=== PATIENT | male | born 1985 | race Caucasian/White ===

== ENCOUNTER 2021-06-04 11:42 | Emergency (ER) | payer OTHER ==
[2021-06-04 12:13] VITALS: BP 107/72; PULSE 73; RESP 20; TEMP 98.3
--- NOTE | 2021-06-04 12:31 | ED ---
ENT HPI - General Source: patient, RN notes reviewed Mode of arrival: ambulatory Limitations: no limitations <Shankar Castellanos - Last Filed: 06/04/21 12:30> <Nichelle Spivey - Last Filed: 06/04/21 13:42> - General Chief complaint: ENT Stated complaint: sore throat Time Seen by Provider: 06/04/21 12:20 - History of Present Illness Initial comments: This a 36-year-old male presents emergency Department chief complaint of nasal congestion, cough, sore throat. Patient states been sick last couple days. Denies any significant shortness breath, chest pain. No sick contacts no ear pain no complaints of severe headache or neck stiffness. Patient has meant that he is a daily smoker. Patient has NO KNOWN DRUG ALLERGIES. (Shankar Castellanos) - Related Data Home Medications Medication Instructions Recorded Confirmed No Known Home Medications 11/16/15 11/18/15 Allergies Allergy/AdvReac Type Severity Reaction Status Date / Time No Known Allergies Allergy Verified 06/04/21 12:13 Review of Systems ROS Other: All systems not noted in ROS Statement are negative. <Shankar Castellanos - Last Filed: 06/04/21 12:30> ROS Other: All systems not noted in ROS Statement are negative. <Nichelle Spivey - Last Filed: 06/04/21 13:42> ROS Statement: Those systems with pertinent positive or pertinent negative responses have been documented in the HPI. Past Medical History Past Medical History: No Reported History History of Any Multi-Drug Resistant Organisms: None Reported Past Surgical History: No Surgical Hx Reported Past Psychological History: No Psychological Hx Reported Smoking Status: Current every day smoker Past Alcohol Use History: None Reported Past Drug Use History: None Reported <Shankar Castellanos - Last Filed: 06/04/21 12:30> General Exam Limitations: no limitations <Shankar Castellanos - Last Filed: 06/04/21 12:30> <Nichelle Spivey - Last Filed: 06/04/21 13:42> - General Exam Comments Initial Comments: GENERAL: Patient is well-developed and well-nourished. Patient is nontoxic and in no acute distress. HEAD: Atraumatic, normocephalic. EYES: Pupils equal round and reactive to light, extraocular movements intact, sclera anicteric, conjunctiva are normal. Eyelids were unremarkable. ENT: TMs normal, nares patent, oropharynx clear without exudates. Moist mucous membranes. NECK: Normal range of motion, supple without lymphadenopathy or JVD. LUNGS: Unlabored respirations. Breath sounds clear to auscultation bilaterally and equal. No wheezes rales or rhonchi. HEART: Regular rate and rhythm without murmurs, rubs or gallops. ABDOMEN: Soft, nontender, normoactive bowel sounds. No guarding, no rebound. No masses appreciated. : Deferred MUSCULOSKELETAL: Normal extremities with adequate strength and normal range of motion, no pitting or edema. No clubbing or cyanosis. NEUROLOGICAL: Patient is alert and oriented x 3. SKIN: Warm, Dry, normal turgor, no rashes or lesions noted. (Nichelle Spivey) Course Vital Signs 06/04/21 12:10 Temperature 98.3 F Pulse Rate 73 Respiratory 20 Rate Blood Pressure 107/72 O2 Sat by Pulse 96 Oximetry Medical Decision Making <Nichelle Spivey - Last Filed: 06/04/21 13:42> - Medical Decision Making Patient is a 36-year-old male here with complaints of a sore throat, cough for the past 2 days. No chest pain, no shortness of breath, no fevers. He did have a sick contact a few days ago. Vital signs are stable. Exam reveals no acute findings. His chest x-ray is normal, it is negative. I discussed with patient that this is most likely viral nature recommended Tylenol or ibuprofen for his discomfort. He can follow-up with his family doctor. Return parameters were discussed with him and he verbalized understanding. (Nichelle Spivey) - Lab Data Lab Results 06/04/21 Range/Units 12:23 Coronavirus (PCR) Not Detected (Not Detectd) Disposition <Shankar Castellanos - Last Filed: 06/04/21 12:30> Is patient prescribed a controlled substance at d/c from ED?: No Time of Disposition: 13:42 <Nichelle Spivey - Last Filed: 06/04/21 13:42> Clinical Impression: Viral illness Disposition: HOME SELF-CARE Condition: Stable Instructions (If sedation given, give patient instructions): Viral Syndrome (ED) Additional Instructions: Please return to the Emergency Department if symptoms worsen or any other concerns. Recommend Tylenol or ibuprofen for any discomfort, increase your fluid intake. Follow-up with your primary care doctor if symptoms persist. Referrals: None,Stated [Primary Care Provider] - 1-2 days
--- NOTE | 2021-06-04 13:33 | XR ---
EXAMINATION TYPE: XR chest 2V DATE OF EXAM: 06/04/2021 COMPARISON: NONE TECHNIQUE: PA and lateral views submitted. HISTORY: Cough and sore throat FINDINGS: The lungs are clear and there is no pneumothorax, pleural effusion, or focal pneumonia. Perihilar i nterstitial prominence. IMPRESSION: 1. Correlate for bronchitis or mild interstitial pneumonitis..
== END 2021-06-04 14:02 | disposition home or self-care (01) ==
LOC: EC 11:42
DX: B34.9 Viral infection, unspecified (principal); F17.200 Nicotine dependence, unspecified, uncomplicated; Z20.822 Contact with and (suspected) exposure to COVID-19
CPT/HCPCS: 71046; 87635; 99283

== ENCOUNTER 2021-07-18 12:57 | Emergency (ER) | payer OTHER ==
--- NOTE | 2021-07-18 14:19 | ED ---
URI HPI - General Chief Complaint: Upper Respiratory Infection Stated Complaint: covid exposure Time Seen by Provider: 07/18/21 13:25 Source: patient, RN notes reviewed Mode of arrival: ambulatory Limitations: no limitations - History of Present Illness Initial Comments: Patient is a 36-year-old male that presents to the emergency department complaining of cough and upper respiratory tract symptoms for the past several days. He notes that he's been in contact with a positive coworker. He notes that he can emergency room to get tested. He denied any other issues or complaints. He does note that he smokes. He denied chest pain shortness breath headache nausea vomiting diarrhea constipation fever fatigue chills. - Related Data Home Medications Medication Instructions Recorded Confirmed No Known Home Medications 11/16/15 11/18/15 Allergies Allergy/AdvReac Type Severity Reaction Status Date / Time No Known Allergies Allergy Verified 07/18/21 13:18 Review of Systems ROS Statement: Those systems with pertinent positive or pertinent negative responses have been documented in the HPI. ROS Other: All systems not noted in ROS Statement are negative. Past Medical History Past Medical History: No Reported History History of Any Multi-Drug Resistant Organisms: None Reported Past Surgical History: No Surgical Hx Reported Past Psychological History: No Psychological Hx Reported Smoking Status: Current every day smoker Past Alcohol Use History: Rare Past Drug Use History: None Reported General Exam Limitations: no limitations General appearance: alert, in no apparent distress Head exam: Present: atraumatic, normocephalic, normal inspection Eye exam: Present: normal appearance, PERRL, EOMI. Absent: scleral icterus, conjunctival injection, periorbital swelling ENT exam: Present: normal exam, mucous membranes moist Neck exam: Present: normal inspection Respiratory exam: Present: normal lung sounds bilaterally. Absent: respiratory distress, wheezes, rales, rhonchi, stridor Cardiovascular Exam: Present: regular rate, normal rhythm, normal heart sounds. Absent: systolic murmur, diastolic murmur, rubs, gallop, clicks Extremities exam: Present: normal inspection, full ROM, normal capillary refill. Absent: tenderness, pedal edema, joint swelling, calf tenderness Neurological exam: Present: alert, oriented X3 Psychiatric exam: Present: normal affect, normal mood Skin exam: Present: warm, dry, intact, normal color. Absent: rash Course Vital Signs 07/18/21 07/18/21 13:16 13:26 Temperature 98.6 F Pulse Rate 78 Respiratory 18 20 Rate Blood Pressure 124/86 O2 Sat by Pulse 98 Oximetry Medical Decision Making - Medical Decision Making 36-year-old male complaining of upper respiratory tract symptoms, contact with Covid-positive coworker. Covid test ordered. Covid test positive. Patient does meet criteria for monoclonal antibody and wishes to undergo IV infusion. Case discussed with Dr. [place]edo, patient discharge home after IV infusion. - Lab Data Lab Results 07/18/21 Range/Units 13:20 Coronavirus (PCR) Detected A (Not Detectd) Disposition Clinical Impression: COVID Disposition: HOME SELF-CARE Condition: Stable Instructions (If sedation given, give patient instructions): Coronavirus Disease 2019 (COVID-19) Additional Instructions: Please return to the Emergency Department if symptoms worsen or any other concerns. Follow-up with primary care 1-2 days. Take Tylenol and Motrin alternating every 3 hours as needed for any fevers. Can use [id number] cough medicine. Quarantine per CDC guidelines. Is patient prescribed a controlled substance at d/c from ED?: No Referrals: None,Stated [Primary Care Provider] - 1-2 days Time of Disposition: 14:18
[2021-07-18] MEDS ORDERED: CASIRIVIMAB (REGN10933) (EUA) 600 MG, IMDEVIMAB (REGN10987) (EUA) 600 MG in SODIUM CHLO... IVPB ONE (14:30)
[2021-07-18] MEDS ORDERED: SODIUM CHLORIDE 0.9% 50 ML IVPB ONE (14:30)
[2021-07-18 14:49] VITALS: RESP 18
[2021-07-18 16:19] VITALS: BP 121/76; PULSE 59; TEMP 98.3
== END 2021-07-18 16:19 | disposition home or self-care (01) ==
LOC: EC 12:57
DX: U07.1 COVID-19 (principal); F17.200 Nicotine dependence, unspecified, uncomplicated
CPT/HCPCS: 99283; 96365; 96361; 87635; Q0243